=== PATIENT | male | born 1995 | race Caucasian/White ===

== ENCOUNTER 2016-08-18 22:14 | Emergency (ER) | payer SELFPAY ==
[2016-08-18] MEDS ORDERED: XYLOCAINE 1% 20 mL ONE (23:32)
[2016-08-18] MEDS ORDERED: MARCAINE 0.5% 30 ML INFILTRATI ONE (23:32)
[2016-08-18] MEDS ORDERED: NACL 0.9% 500 ML IR ONE (23:39)
[2016-08-19] MEDS ORDERED: ANCEF IM ONE (00:13)
[2016-08-19] MEDS ORDERED: BOOSTRIX IM ONE (00:13)
[2016-08-19] MEDS ORDERED: ANTIBIOTIC OINT TP ONE (00:16)
--- NOTE | 2016-08-19 00:23 | Emergency Department Report ---
HPI - General Chief Complaint: Wound/Laceration Time Seen by Provider: 08/18/16 23:20 - HPI HPI: Room 24 The patient is a 21-year-old male presenting with a chief complaint right hand laceration. The patient states out of anger he punched through a window house at approximately 21:30. The patient cannot recall when he last received a tetanus shot. The patient currently gives his pain a score of 4-5/10 Location: Right hand Duration: [see above] Quality: Pain Severity: 4-5/10 Modifying factors: Movement of his small finger increases pain Context: [see above] Mode of transportation: [not driving] ED Past Medical Hx - Past Medical History Previous Medical History?: No - Surgical History Past Surgical History?: No - Social History Smoking Status: Never Smoker Substance Use Type: None (denies illicit drug use), Alcohol (rarely) - Medications Home Medications: Home Medications Medication Instructions Recorded Confirmed Last Taken Type Ibuprofen [Motrin] 400 mg PO BID PRN #20 tablet 05/17/14 Unknown Rx Cephalexin [Keflex] 500 mg PO Q6HR #28 capsule 08/19/16 Unknown Rx HYDROcodone/APAP 5-325 [[place] 1 - 2 each PO Q6HR PRN #10 tablet 08/19/16 Unknown Rx 5/325] Ibuprofen [Motrin 800 MG tab] 800 mg PO Q8HR PRN #20 tablet 08/19/16 Unknown Rx ED Review of Systems ROS: Stated complaint: RT HAND FIFTH FINGER LAC Other details as noted in HPI Comment: All other systems reviewed and negative Constitutional: denies: chills, fever Eyes: denies: eye pain, eye discharge, vision change ENT: denies: ear pain, throat pain Respiratory: denies: cough, shortness of breath, wheezing Cardiovascular: denies: chest pain, palpitations Endocrine: no symptoms reported Gastrointestinal: denies: abdominal pain, nausea, diarrhea Genitourinary: denies: urgency, dysuria Musculoskeletal: denies: back pain, joint swelling, arthralgia Skin: other (right hand laceration) Neurological: denies: headache, weakness, paresthesias Psychiatric: denies: anxiety, depression Hematological/Lymphatic: denies: easy bleeding, easy bruising Physical Exam - Physical Exam Vital Signs: Vital Signs 08/18/16 22:53 Temperature 98.5 F Pulse Rate 80 Respiratory 18 Rate Blood Pressure 120/74 O2 Sat by Pulse 98 Oximetry Physical Exam: GENERAL: The patient is well-developed well-nourished male lying on stretcher appearing to be in mild discomfort with right hand fully bandaged. [] HEENT: Normocephalic. Extraocular motions are intact. NECK: Trachea midline CHEST/LUNGS: There is no respiratory distress noted. HEART/CARDIOVASCULAR: Regular. There is no tachycardia. Normal Capillary refill small finger right hand ABDOMEN: There is no abdominal distention. SKIN: There is an approximately 3.5 cm laceration to the dorsal aspect of the right hand along the ulnar age extending towards the MCP of the small finger. There is a small laceration approximately 1.5 cm in length over the MCP of the small finger of the right hand. No exposed tendons visualized NEURO: The patient is awake, alert, and oriented. The patient is cooperative. The patient has normal speech. Normal sensation of the fingers of the right hand. Patient able to fully extend right small finger after local anesthesia MUSCULOSKELETAL: Patient able to fully extend right small finger after local anesthesia. The laceration does not appear to extend into the MCP joint Body Four View: 1 - lac 2 - lac ED Course Vital Signs 08/18/16 22:53 Temperature 98.5 F Pulse Rate 80 Respiratory 18 Rate Blood Pressure 120/74 O2 Sat by Pulse 98 Oximetry ED Medical Decision Making - Radiology Data Radiology results: image reviewed (right hand x-ray) interpreted by me: Right hand x-ray-no foreign bodies, no acute fracture - Differential Diagnosis hand laceration, tendon laceration Critical care attestation.: If time is entered above; I have spent that time in minutes in the direct care of this critically ill patient, excluding procedure time. ED Disposition Clinical Impression: Laceration of right hand Disposition: DC-01 TO HOME OR SELFCARE Is pt being admited?: No Does the pt Need Aspirin: No Condition: Stable Instructions: Suture Care (ED), Laceration (ED), Finger Laceration (ED) Additional Instructions: You should return to the emergency department or follow-up with your primary doctor in 10 days to have your sutures removed. Return to the emergency department immediately should you develop worsening symptoms, fever, inability to tolerate food or liquid or any other concerns. Prescriptions: Cephalexin [Keflex] 500 mg PO Q6HR #28 capsule HYDROcodone/APAP 5-325 [[place] 5/325] 1 - 2 each PO Q6HR PRN #10 tablet PRN Reason: Pain Ibuprofen [Motrin 800 MG tab] 800 mg PO Q8HR PRN #20 tablet PRN Reason: Pain Referrals: NANCY RUVALCABA MD [Staff Physician] - 3-5 Days (Dr. Ruvalcaba is an orthopedic surgeon. Please follow up with him for further evaluation) Time of Disposition: 00:28 Blank Doc - Documentation Documentation: Laceration note Consent was obtained verbally Length of wound: 5 cm The wound was anesthetized with lidocaine 1%/bupivacaine 0.5% approximately 12 mL's Wound was copiously irrigated with normal saline Site was prepped with Betadine Sutures used were 4.0 Ethilon The number of sutures placed in a simple interrupted fashion 11 The wound had good approximation The wound had good hemostasis Antibiotic ointment was applied and the wound was dressed Suture removal discussed with patient and informed the sutures need to be removed in 10 days Laceration type: Simple There were no complications
[2016-08-19] MEDS ORDERED: TRIPLE ANTIBIOTIC TP ONE ×2 (01:14→01:44)
[2016-08-19] MEDS ORDERED: WATER FOR INJ (PF) 10 ML ONE (01:15)
[2016-08-19 02:23] VITALS: BP 121/85
--- NOTE | 2016-08-19 08:51 | XRay Report ---
Right hand: Trauma/laceration. Routine views demonstrate bandaging over the fifth finger obscuring detail of the underlying soft tissues. Suspect laceration at the base of the fifth digit laterally. No foreign body noted. There is suggestion of some small bony fragments adjacent to the base of the fifth digit with no clearly visualized donor site. The remainder of the hand is normal. Impression: Compromised evaluation of soft tissue injury involving fifth digit. Probable laceration and small avulsion of bone at fifth digit base.
== END 2016-08-19 02:23 | disposition home or self-care (01) ==
LOC: ED 22:14
DX: S61.411A Laceration without foreign body of right hand, initial encounter (principal); W22.8XXA Striking against or struck by other objects, initial encounter; Y93.9 Activity, unspecified; Y92.9 Unspecified place or not applicable; Y99.9 Unspecified external cause status
CPT/HCPCS: 12002; 73130; 90471; 90715; 96372; 99283; J0690; A6250